=== PATIENT | female | born 1990 | race Caucasian/White ===

== ENCOUNTER 2019-03-07 12:45 | Emergency (ER) | payer MEDICAID ==
[~2019-03-07] VITALS: Ht 175.3 cm; Wt 72.6 kg
[~2019-03-07 12:45] MED LIST: NITR-65 PO; ONDA-42 SL; OXYTOCIN/NORMAL SALINE 0 ML IV ONE; PREN-98 PO
[2019-03-07] MEDS ORDERED: fentaNYL INJECTION 100 MCG/2 ML AMP ONE (13:01)
[2019-03-07] MEDS: OXYTOCIN/NORMAL SALINE 500 ML IV SCH ×2 (13:10→13:56)
[2019-03-07] MEDS ORDERED: IBUPROFEN 800 MG (MOTRIN) TAB PO ONE ×2 (13:17→13:45)
[2019-03-07] MEDS ORDERED: HYDROcodone/APAP 5 MG/325 MG (LORTAB) TAB ONE (13:17)
[2019-03-07] MEDS ORDERED: HYDROcodone/APAP 5 MG/325 MG (LORTAB) TAB PO ONE (13:45)
[2019-03-07] MEDS ORDERED: fentaNYL INJECTION 100 MCG/2 ML AMP IVP ONE (13:45)
--- NOTE | 2019-03-07 13:56 | ED Abdominal Pain ---
General Chief Complaint: Emergency Delivery-Mother Stated Complaint: L&D Source of Information: Patient, RN Notes Reviewed Exam Limitations: No Limitations History of Present Illness Date Seen by Provider: Mar 07, 2019 Time Seen by Provider: 13:10 Initial Comments Patient presents in active labor. Is @ 37 weeks and 3 days. Reportedly to deliver in [place]. Timing/Duration: Getting Worse Severity/Quality: Severe Location: Suprapubic Radiation: Back Activities at Onset: Rest Modifying Factors: Improves With Other (none) Associated Symptoms: Denies Symptoms Allergies and Home Medications Allergies Coded Allergies: No Known Drug Allergies (Unverified , 10/30/14) Home Medications Vit37/Iron/Folic Acid 1 Each Tab.chew, 1 EACH PO DAILY, (Reported) Patient Home Medication List Home Medication List Reviewed: Yes Review of Systems Review of Systems Constitutional: see HPI, other (patient in active labor) Gastrointestinal: See HPI, Abdominal Pain (actively vick) All Other Systems Reviewed Negative Unless Noted: Yes Past Bhgtzos-Xpottd-Eobmqg Hx Past Medical History Reproductive Disorders: No Sexually Transmitted Disease: No Physical Exam Vital Signs Capillary Refill : Height/Weight/BMI Height: 5'4.00" Weight: 164lbs. oz. 74.253903mk; BMI Method:Stated General Appearance: WD/WN, moderate distress Respiratory: no respiratory distress Gastrointestinal: other (obvious gravidia uterus) Rectal: deferred Genital/Rectal: other (Dr. Srinivasan reports the patient is dilated to 9 and 100 % effaced; 1+ station) Neurologic/Psychiatric: alert, oriented x 3 Skin: warm/dry Exam Comments Dr. Srinivasan present in the room shortly p/ the patient's arrival and assume OB care of the patient c/ my blessing. Progress/Results/Core Measures Results/Orders Lab Results Laboratory Tests Test 03/07/19 12:40 Range/Units White Blood Count 9.5 4.3-11.0 10^3/uL Red Blood Count 4.47 4.35-5.85 10^6/uL Hemoglobin 11.1 L 11.5-16.0 G/DL Hematocrit 35 35-52 % Mean Corpuscular Volume 78 L 80-99 FL Mean Corpuscular Hemoglobin 25 25-34 PG Mean Corpuscular Hemoglobin Concent 32 32-36 G/DL Red Cell Distribution Width 13.9 10.0-14.5 % Platelet Count 203 130-400 10^3/uL Mean Platelet Volume 10.7 H 7.4-10.4 FL Neutrophils (%) (Auto) 58 42-75 % Lymphocytes (%) (Auto) 32 12-44 % Monocytes (%) (Auto) 10 0-12 % Eosinophils (%) (Auto) 1 0-10 % Basophils (%) (Auto) 0 0-10 % Neutrophils # (Auto) 5.4 1.8-7.8 X 10^3 Lymphocytes # (Auto) 3.0 1.0-4.0 X 10^3 Monocytes # (Auto) 0.9 0.0-1.0 X 10^3 Eosinophils # (Auto) 0.1 0.0-0.3 10^3/uL Basophils # (Auto) 0.0 0.0-0.1 10^3/uL My Orders Orders - DUSTY VILLA DO Hydrocodone/Apap 5/325 Tablet (Lortab 5 (03/07/19 13:17) Ibuprofen Tablet (Motrin Tablet) (03/07/19 13:17) Cbc With Automated Diff (03/07/19 13:54) Comprehensive Metabolic Panel (03/07/19 13:54) Medications Given in ED Current Medications Medications Dose Ordered Sig/Stew Route Start Time Stop Time Status Last Admin Dose Admin Acetaminophen/ Hydrocodone Bitart 1 tab ONCE ONCE PO 03/07/19 13:45 03/07/19 13:46 DC 03/07/19 13:25 1 TAB Fentanyl Citrate 50 mcg ONCE ONCE IVP 03/07/19 13:45 03/07/19 13:46 DC 03/07/19 13:08 50 MCG Ibuprofen 800 mg ONCE ONCE PO 03/07/19 13:45 03/07/19 13:46 DC 03/07/19 13:23 800 MG Progress Progress Note : Progress Note Dr. Srinivasan delivered a baby boy c/ agars of 9. (+) meconium Departure Impression Primary Impression: [place] delivered in emergency department Disposition: 02 XFER SHT-TRM HOSP Condition: Stable Transfer Time Spoke to Accepting Phy: 13:30 Transfer Progress Notes Per Dr. Srinivasan. She spoke c/ Dr. Chelo Garza who has accepted the patient and baby in transfer. Transfer Facility: [facility] Method of Transfer: EMS Departure-Patient Inst. Referrals: NO,LOCAL PHYSICIAN (PCP/Family) Primary Care Physician DUSTY VILLA DO Mar 07, 2019 13:56
[2019-03-07 14:10] LABS: HEMATOCRIT 35 % (35-52); HEMOGLOBIN 11.1 G/DL (11.5-16.0); MEAN CORPUSCULAR HEMOGLOBIN 25 PG (25-34); MEAN CORPUSCULAR HGB CONC 32 G/DL (32-36); MEAN CORPUSCULAR VOLUME 78 FL (80-99); WHITE BLOOD COUNT 9.5 10^3/uL (4.3-11.0)
[2019-03-07 14:11] LABS: BASOPHILS % (AUTO) 0 % (0-10); EOSINOPHILS # (AUTO) 0.1 10^3/uL (0.0-0.3); EOSINOPHILS % (AUTO) 1 % (0-10); LYMPHOCYTES % (AUTO) 32 % (12-44); MEAN PLATELET VOLUME 10.7 FL (7.4-10.4); MONOCYTES # (AUTO) 0.9 X 10^3 (0.0-1.0); MONOCYTES % (AUTO) 10 % (0-12); NEUTROPHILS # (AUTO) 5.4 X 10^3 (1.8-7.8); NEUTROPHILS % (AUTO) 58 % (42-75); PLATELET COUNT 203 10^3/uL (130-400); RED CELL DISTRIBUTION WIDTH 13.9 % (10.0-14.5)
[2019-03-07 14:31] LABS: CARBON DIOXIDE 20 MMOL/L (21-32); CHLORIDE 100 MMOL/L (98-107); POTASSIUM 4.6 MMOL/L (3.6-5.0); SODIUM 134 MMOL/L (135-145)
[2019-03-07 14:32] LABS: ALANINE AMINOTRANSFERASE 13 U/L (0-55); ALBUMIN 3.1 GM/DL (3.2-4.5); ALKALINE PHOSPHATASE 240 U/L (40-136); BILIRUBIN,TOTAL 0.2 MG/DL (0.1-1.0); BUN/CREATININE RATIO 18; CALCIUM 9.1 MG/DL (8.5-10.1); CREATININE SERUM 0.67 MG/DL (0.60-1.30); GFR ESTIMATED > 60; GLUCOSE 62 MG/DL (70-105); TOTAL PROTEIN 6.9 GM/DL (6.4-8.2)
[2019-03-07 15:00] VITALS: BP 157/97
--- NOTE | 2019-03-07 17:03 | OB Labor & Delivery Record ---
Vag Delivery Note Vag Delivery Note Date of Delivery: 03/07/19 Preoperative Diagnosis: Leonie Lebron is a (28 /Para 4/ 3, Gestational Age 37 3/7 wga who presented with severe pain and contraction to ED. Postoperative Diagnosis: Same Surgeon: EMIL CHANDRA Non Licensed Operator: [none] Anesthesia: [none] Delivery Type: [] Findings: [] Viable [male] infant, apgars [9/9], weight [7 pounds 2 ounces] Lacerations: Intact placenta with 3 vessel cord. No nuchal cord, body cord or shoulder dystocia 2 bags of 20 u pitocin given post- Estimated Blood Loss: [450] ml Complications: None Condition: Stable Description of Procedure: The patient is a 28 year old female who presented [with contractions and abdominal pain]. . Her labor course was remarkable for [precipitous delivery in ED] She was found to be complete with bulging bag. AROM with my gloved finger and it showed meconium. She was then set up for delivery. The 's head was delivered atraumatically in the [OA] position. The shoulders and remainder of the infant' s body were then delivered without difficulty. Upon delivery, the head was held below the level of the perineum and the mouth and nares were bulb suctioned. The cord was doubly clamped and cut after 60 seconds and was placed on maternal abdomen. An intact placenta with 3-vessel cord delivered via Artur and there was found to be minimal bleeding.~ Vigorous fundal massage was performed and the fundus was found to be firm. IV oxytocin was given. Examination of the vagina and perineum revealed no lacerations. Following the repair, sponge, instrument and needle counts were correct. Mom and baby were both in stable condition in the labor suite. Vitals - Labs Labs Laboratory Tests 03/07/19 12:40: White Blood Count 9.5, Red Blood Count 4.47, Hemoglobin 11.1L, Hematocrit 35, Mean Corpuscular Volume 78L, Mean Corpuscular Hemoglobin 25, Mean Corpuscular Hemoglobin Concent 32, Red Cell Distribution Width 13.9, Platelet Count 203, Mean Platelet Volume 10.7H, Neutrophils (%) (Auto) 58, Lymphocytes (%) (Auto) 32 , Monocytes (%) (Auto) 10, Eosinophils (%) (Auto) 1, Basophils (%) (Auto) 0, Neutrophils # (Auto) 5.4, Lymphocytes # (Auto) 3.0, Monocytes # (Auto) 0.9, Eosinophils # (Auto) 0.1, Basophils # (Auto) 0.0, Sodium Level 134L, Potassium Level 4.6, Chloride Level 100, Carbon Dioxide Level 20L, Anion Gap 14, Blood Urea Nitrogen 12, Creatinine 0.67, Estimat Glomerular Filtration Rate > 60, BUN/ Creatinine Ratio 18, Glucose Level 62L, Calcium Level 9.1, Corrected Calcium 9.8 , Total Bilirubin 0.2, Aspartate Amino Transf (AST/SGOT) 21, Alanine Aminotransferase (ALT/SGPT) 13, Alkaline Phosphatase 240H, Total Protein 6.9, Albumin 3.1L EMIL CHANDRA MD Mar 07, 2019 17:03
== END 2019-03-07 15:00 | disposition short-term general hospital (02) ==
LOC: ER FS 12:50 → EDUNIT# 13:06 → ER FS 15:00
DX: O80 Encounter for full-term uncomplicated delivery (principal); Z37.0 Single live birth; Z3A.37 37 weeks gestation of pregnancy
CPT/HCPCS: 36415; 59409; 80053; 85025; 96374; 99291

== ENCOUNTER 2020-11-02 02:18 | Emergency (ER) | payer MEDICAID ==
[~2020-11-02] VITALS: Ht 162 cm; Wt 104.0 kg
[~2020-11-02 02:18] MED LIST changes: -OXYTOCIN/NORMAL SALINE 0 ML IV ONE
[2020-11-02 03:02] LABS: BILIRUBIN,URINE NEGATIVE (NEGATIVE); CLARITY,URINE CLEAR; COLOR,URINE YELLOW; GLUCOSE, URINE (UA) NEGATIVE (NEGATIVE); KETONES,URINE NEGATIVE (NEGATIVE); LEUKOCYTE ESTERASE ,URINE NEGATIVE (NEGATIVE); NITRITE,URINE NEGATIVE (NEGATIVE); PH,URINE 7.5 (5-9); PROTEIN,URINE NEGATIVE (NEGATIVE)
[2020-11-02 03:08] LABS: BACTERIA,URINE TRACE /HPF; SQUAMOUS EPITHELIAL CELL,UR >50 /HPF
--- NOTE | 2020-11-02 03:09 | ED Abdominal Pain ---
General Chief Complaint: Abdominal/GI Problems Stated Complaint: ABD PAIN,MIDDLE & LEFT SIDE Source of Information: Patient Exam Limitations: No Limitations History of Present Illness Date Seen by Provider: Nov 02, 2020 Time Seen by Provider: 02:45 Initial Comments Patient presents ER by private conveyance with chief complaint that she is been having pain in her epigastric region as well as her left lower quadrant since Thursday, 5 days ago. She went to urgent care on Thursday and they did ultrasound telling her her gallbladder was normal and some labs which they said were okay. Urgent care told her she needed to keep her follow-up appointment with her primary care doctor, Lisa Cowart but to return to the ER if her pain worsens. She says tonight it started around midnight and she use Pepcid but the pain is still unbearable, worse than childbirth. She had her tubes tied but no other abdominal surgeries. She has had some nausea and vomiting of stomach acid. She is not been able to eat much all week. She is had no fevers or chills. No dysuria. The patient states her car ride over was very uncomfortable every time they had a bump. Allergies and Home Medications Allergies Coded Allergies: No Known Drug Allergies (Unverified , 10/30/14) Home Medications Ondansetron 4 Mg Tab.rapdis, 4 MG PO Q6H PRN for NAUSEA/VOMITING Prescribed by: CHRISTIANA HENRY on 11/02/20 05 Pantoprazole Sodium 40 Mg Tablet.dr, 40 MG PO DAILY Prescribed by: CHRISTIANA HENRY on 11/02/20 0538 Vit37/Iron/Folic Acid 1 Each Tab.chew, 1 EACH PO DAILY, (Reported) Patient Home Medication List Home Medication List Reviewed: Yes Review of Systems Review of Systems Constitutional: No chills, No diaphoresis EENTM: No Blurred Vision, No Double Vision Respiratory: Denies Cough, Denies Shortness of Air Cardiovascular: Denies Chest Pain, Denies Lightheadedness Gastrointestinal: See HPI, Abdominal Pain; Denies Constipated, Denies Diarrhea; Nausea, Poor Fluid Intake, Vomiting Genitourinary: Denies Burning, Denies Discharge Musculoskeletal: No back pain, No joint pain Skin: No pruritus, No rash Psychiatric/Neurological: Denies Headache, Denies Numbness All Other Systems Reviewed Negative Unless Noted: Yes Past Dcqwbmf-Viyrao-Vdsnuo Hx Patient Social History Alcohol Use: Denies Use Recreational Drug Use: No Smoking Status: Never a Smoker Past Medical History Reproductive Disorders: No Sexually Transmitted Disease: No Physical Exam Vital Signs Vital Signs - First Documented 11/02/20 02:50 Temp 36.2 Pulse 80 Resp 18 B/P (MAP) 150/92 (111) Pulse Ox 98 Capillary Refill : Height/Weight/BMI Height: 5'9.00" Weight: 160lbs. oz. 72.414582lh; BMI Method:Estimated General Appearance: WD/WN, no apparent distress HEENT: PERRL/EOMI, pharynx normal Neck: full range of motion, supple, normal inspection Respiratory: lungs clear, normal breath sounds, no respiratory distress, no accessory muscle use Cardiovascular: normal peripheral pulses, regular rate, rhythm, no edema Gastrointestinal: normal bowel sounds, soft, no organomegaly, tenderness (Epigastric with positive Moreland sign and left lower quadrant tenderness with positive mesenteric signs and psoas sign.) Progress/Results/Core Measures Results/Orders Lab Results Laboratory Tests Test 11/02/20 02:45 11/02/20 03:10 Range/Units Urine Color YELLOW Urine Clarity CLEAR Urine pH 7.5 5-9 Urine Specific [place] 1.010 L 1.016-1.022 Urine Protein NEGATIVE NEGATIVE Urine Glucose (UA) NEGATIVE NEGATIVE Urine Ketones NEGATIVE NEGATIVE Urine Nitrite NEGATIVE NEGATIVE Urine Bilirubin NEGATIVE NEGATIVE Urine Urobilinogen 0.2 < = 1.0 MG/DL Urine Leukocyte Esterase NEGATIVE NEGATIVE Urine RBC (Auto) NEGATIVE NEGATIVE Urine RBC NONE /HPF Urine WBC NONE /HPF Urine Squamous Epithelial Cells >50 H /HPF Urine Crystals NONE /LPF Urine Bacteria TRACE /HPF Urine Casts NONE /LPF Urine Mucus NEGATIVE /LPF Urine Culture Indicated NO White Blood Count 10.7 4.3-11.0 10^3/uL Red Blood Count 4.41 3.80-5.11 10^6/uL Hemoglobin 13.2 11.5-16.0 g/dL Hematocrit 37 35-52 % Mean Corpuscular Volume 84 80-99 fL Mean Corpuscular Hemoglobin 30 25-34 pg Mean Corpuscular Hemoglobin Concent 36 32-36 g/dL Red Cell Distribution Width 11.9 10.0-14.5 % Platelet Count 408 H 130-400 10^3/uL Mean Platelet Volume 9.2 9.0-12.2 fL Immature Granulocyte % (Auto) 0 % Neutrophils (%) (Auto) 74 42-75 % Lymphocytes (%) (Auto) 16 12-44 % Monocytes (%) (Auto) 8 0-12 % Eosinophils (%) (Auto) 1 0-10 % Basophils (%) (Auto) 0 0-10 % Neutrophils # (Auto) 8.0 H 1.8-7.8 10^3/uL Lymphocytes # (Auto) 1.7 1.0-4.0 10^3/uL Monocytes # (Auto) 0.8 0.0-1.0 10^3/uL Eosinophils # (Auto) 0.1 0.0-0.3 10^3/uL Basophils # (Auto) 0.0 0.0-0.1 10^3/uL Immature Granulocyte # (Auto) 0.0 0.0-0.1 10^3/uL Sodium Level 136 135-145 MMOL/L Potassium Level 3.5 L 3.6-5.0 MMOL/L Chloride Level 105 98-107 MMOL/L Carbon Dioxide Level 19 L 21-32 MMOL/L Anion Gap 12 5-14 MMOL/L Blood Urea Nitrogen 11 7-18 MG/DL Creatinine 0.80 0.60-1.30 MG/DL Estimat Glomerular Filtration Rate > 60 BUN/Creatinine Ratio 14 Glucose Level 109 H 70-105 MG/DL Calcium Level 8.9 8.5-10.1 MG/DL Corrected Calcium 8.7 8.5-10.1 MG/DL Total Bilirubin 0.6 0.1-1.0 MG/DL Aspartate Amino Transf (AST/SGOT) 16 5-34 U/L Alanine Aminotransferase (ALT/SGPT) 17 0-55 U/L Alkaline Phosphatase 87 40-136 U/L C-Reactive Protein High Sensitivity 1.13 H 0.00-0.50 MG/DL Total Protein 7.9 6.4-8.2 GM/DL Albumin 4.2 3.2-4.5 GM/DL Lipase 15 8-78 U/L My Orders Orders - CHRISTIANA HENRY Ua Culture If Indicated (11/02/20 02:21) Urine Bedside (11/02/20 02:21) Cbc With Automated Diff (11/02/20 03:01) Comprehensive Metabolic Panel (11/02/20 03:01) Lipase (11/02/20 03:01) Hs C Reactive Protein (11/02/20 03:01) Pantoprazole Injection (Protonix Injecti (11/02/20 03:15) Ed Iv/Invasive Line Start (11/02/20 03:01) Lactated Ringers (Lr 1000 Ml Iv Solution (11/02/20 03:15) Ketorolac Injection (Toradol Injection) (11/02/20 03:15) Ondansetron Injection (Zofran Injectio (11/02/20 03:15) Ct Abdomen/Pelvis W (11/02/20 04:22) Medications Given in ED Current Medications Medications Dose Ordered Sig/Stew Route Start Time Stop Time Status Last Admin Dose Admin Ketorolac Tromethamine 30 mg ONCE ONCE IVP 11/02/20 03:15 11/02/20 03:16 DC 11/02/20 03:20 30 MG Lactated Ringer's 1,000 ml @ 0 mls/hr Q0M ONCE IV 11/02/20 03:15 11/02/20 03:16 DC 11/02/20 03:22 1,000 MLS/HR Ondansetron HCl 4 mg ONCE ONCE IVP 11/02/20 03:15 11/02/20 03:16 DC 11/02/20 03:19 4 MG Pantoprazole 40 mg ONCE ONCE IV 11/02/20 03:15 11/02/20 03:16 DC 11/02/20 03:21 40 MG Vital Signs/I&O 11/02/20 02:50 Temp 36.2 Pulse 80 Resp 18 B/P (MAP) 150/92 (111) Pulse Ox 98 Progress Progress Note #1: Time: 03:08 Progress Note Clinical exam of her abdomen is concerning but her vitals are aseptic. Appendicitis versus gallbladder versus much less likely GERD. Plan to give her some pantoprazole and NSAIDs. We will give her a liter of fluids and check some labs and urinalysis. Bedside was negative. Urinalysis unremarkable. If there is any concern on the labs we would plan to do a CT abdomen and pelvis likely appendix study. Lipase has been ordered. Progress Note #2: Time: 04:05 Progress Note The patient's nausea is gone. Her pain has significantly improved after NSAIDs. She is going to discuss with her her symptoms. We have offered to do a CT scan to rule out any significant pathology but her physical exam has also improved. She is mule tender and no longer has a Moreland sign positive exam. Progress Note #3: Time: 04:22 Progress Note Patient elected to do a CT scan abdomen pelvis after being given the option and discussing risks, benefits and alternatives. She was able to ambulate to the restroom. She is feeling better. Will rule out appendicitis or cholecystitis. Diagnostic Imaging Diagonstic Imaging: CT Plain Films/CT/US/NM/MRI: abdomen, pelvis Comments Normal appendix, gallbladder and bile ducts are unremarkable without stones or ductal dilatation. No evidence of acute abnormality. Mild right renal scarring at the lower pole. No hydronephrosis. No evidence of acute pyelonephritis. Reviewed: Reviewed [place] Study, Reviewed by Me Departure Impression Primary Impression: Biliary colic Disposition: HOME, SELF-CARE Condition: Improved Departure-Patient Inst. Decision time for Depature: 05:35 Referrals: STEFANY ULLOA PAMELA R APRN (PCP) Primary Care Physician Patient Instructions: POSS GALLSTONE-W/BILIARY COLIC Add. Discharge Instructions: I suspect your symptoms may be caused by your gallbladder. You need to follow- up with your primary care provider at your next scheduled appointment to further work this up. Pantoprazole 40 mg daily. Ondansetron 1 tablet under the tongue every 6 hours as necessary for nausea and/or vomiting. Return to the nearest ER if you develop fever, intractable nausea or pain. Eat smaller meals and avoid greasy red meats, dairy or other similar foods. Fish, chicken, high-fiber vegetables are recommended. Dr. Ulloa, general surgery can also help you work this up. Other possibilities exist beyond your gallbladder. If you would like to follow-up with him in the clinic then call on Thursday and request to follow-up. All discharge instructions reviewed with patient and/or family. Voiced understanding. Scripts Ondansetron (Ondansetron Odt) 4 Mg Tab.rapdis 4 MG PO Q6H PRN for NAUSEA/VOMITING, #10 TAB 0 Refills Prov: CHRISTIANA HENRY 11/02/20 Pantoprazole Sodium (Pantoprazole Sodium) 40 Mg Tablet.dr 40 MG PO DAILY for 30 Days, #30 TAB 0 Refills Prov: CHRISTIANA HENRY 11/02/20 Work/School Note: Work Release Form Date Seen in the Emergency Department: Nov 02, 2020 Return to Work: Nov 03, 2020 Restrictions: No Restrictions Copy Copies To 1: STEFANY ULLOA TITUS J Nov 02, 2020 03:09
[2020-11-02] MEDS ORDERED: KETOROLAC 30 MG/ML VIAL IVP ONE (03:15)
[2020-11-02] MEDS ORDERED: ONDANSETRON 4 MG/2 ML (SDV) Z0FRAN IVP ONE (03:15)
[2020-11-02] MEDS ORDERED: LACTATED RINGERS 1,000 ML IV ONE (03:15)
[2020-11-02] MEDS ORDERED: PANTOPRAZOLE 40 MG (PROTONIX) VIAL IV ONE (03:15)
[2020-11-02 03:20] LABS: BASOPHILS % (AUTO) 0 % (0-10); EOSINOPHILS # (AUTO) 0.1 10^3/uL (0.0-0.3); EOSINOPHILS % (AUTO) 1 % (0-10); HEMATOCRIT 37 % (35-52); HEMOGLOBIN 13.2 g/dL (11.5-16.0); LYMPHOCYTES # (AUTO) 1.7 10^3/uL (1.0-4.0); LYMPHOCYTES % (AUTO) 16 % (12-44); MEAN CORPUSCULAR HEMOGLOBIN 30 pg (25-34); MEAN CORPUSCULAR HGB CONC 36 g/dL (32-36); MEAN CORPUSCULAR VOLUME 84 fL (80-99); MEAN PLATELET VOLUME 9.2 fL (9.0-12.2); MONOCYTES # (AUTO) 0.8 10^3/uL (0.0-1.0); MONOCYTES % (AUTO) 8 % (0-12); NEUTROPHILS % (AUTO) 74 % (42-75); PLATELET COUNT 408 10^3/uL (130-400); WHITE BLOOD COUNT 10.7 10^3/uL (4.3-11.0)
[2020-11-02 03:31] LABS: ALBUMIN 4.2 GM/DL (3.2-4.5); CHLORIDE 105 MMOL/L (98-107); POTASSIUM 3.5 MMOL/L (3.6-5.0); SODIUM 136 MMOL/L (135-145)
[2020-11-02 03:32] LABS: CALCIUM 8.9 MG/DL (8.5-10.1)
[2020-11-02 03:33] LABS: GLUCOSE 109 MG/DL (70-105); TOTAL PROTEIN 7.9 GM/DL (6.4-8.2)
[2020-11-02 03:34] LABS: CARBON DIOXIDE 19 MMOL/L (21-32)
[2020-11-02 03:35] LABS: BILIRUBIN,TOTAL 0.6 MG/DL (0.1-1.0)
[2020-11-02 03:37] LABS: ALKALINE PHOSPHATASE 87 U/L (40-136); GFR ESTIMATED > 60
[2020-11-02 03:38] LABS: BUN/CREATININE RATIO 14
[2020-11-02 03:40] LABS: ALANINE AMINOTRANSFERASE 17 U/L (0-55); LIPASE 15 U/L (8-78)
[2020-11-02] MEDS ORDERED: ONDA4TAB11 PO ×2 (05:38→05:56)
[2020-11-02] MEDS ORDERED: PANT40TA52 PO ×2 (05:38→05:56)
[2020-11-02 05:56] VITALS: BP 143/93
--- NOTE | 2020-11-02 07:19 | Diagnostic Imaging Report ---
PROCEDURE: CT abdomen and pelvis with contrast. TECHNIQUE: Multiple contiguous axial images were obtained through the abdomen and pelvis after administration of intravenous contrast. Auto Exposure Controls were utilized during the CT exam to meet ALARA standards for radiation dose reduction. All CT scans use one or more of the following dose optimizing techniques: automated exposure control, MA and/or KvP adjustment based on patient size and exam type or iterative reconstruction. INDICATION: Right upper quadrant pain, positive Moreland's sign EXAMINATION: CT of the abdomen and pelvis with contrast from 11/02/2020 COMPARISONS: None FINDINGS: There is mild fatty infiltration throughout the liver which is otherwise normal in appearance. The gallbladder, spleen, pancreas and adrenal glands normal. Kidneys demonstrate no acute abnormalities. There is no ascites or free air. There are findings of mild constipation. The appendix is normal. There is a cystic area within the left adnexa likely an ovarian cyst approximately a centimeter and half in size. There is no acute osseous abnormality. Lung bases unremarkable. IMPRESSION: 1. No acute abnormality in the abdomen nor pelvis. Incidental findings as above including a cystic lesion in left adnexa likely an ovarian cyst. Pertinent findings agree with the preliminary report. Dictated by: Dictated on workstation # [id number]
== END 2020-11-02 05:56 | disposition home or self-care (01) ==
LOC: EDUNIT# 02:18 → ER 02:22
DX: K80.50 Calculus of bile duct without cholangitis or cholecystitis without obstruction (principal)
CPT/HCPCS: 36415; 74177; 80053; 81000; 83690; 84703; 85025; 86141

== ENCOUNTER 2020-11-19 05:49 | Outpatient (RCR) | payer MEDICAID ==
[~2020-11-19] VITALS: Ht 162.6 cm; Wt 104.0 kg
[~2020-11-19 05:49] MED LIST changes: +ONDA4TAB11 PO; +PANT40TA52 PO
== END 2020-11-19 13:58 | disposition home or self-care (01) ==
LOC: PREOP 05:49
PROVIDERS: ATTEND Surgery
DX: Z01.818 Encounter for other preprocedural examination (principal); K21.9 Gastro-esophageal reflux disease without esophagitis

== ENCOUNTER → 2020-11-22 | Outpatient (CLI) | payer MEDICAID | LOC: LAB FS 13:32 | PROVIDERS: ATTEND Surgery | DX: Z01.818 Encounter for other preprocedural examination (principal); K21.9 Gastro-esophageal reflux disease without esophagitis; Z20.822 Contact with and (suspected) exposure to COVID-19 | CPT/HCPCS: 87635 ==

== ENCOUNTER 2020-11-26 08:06 | Day surgery (SDC) | payer MEDICAID ==
[~2020-11-26] VITALS: Ht 162.6 cm; Wt 104.0 kg
[2020-11-26] MEDS ORDERED: LACTATED RINGERS 1,000 ML IV ONE (08:10)
--- NOTE | 2020-11-26 08:24 | Progress Note-Pre Operative ---
Pre-Operative Progress Note H&P Reviewed The H&P was reviewed, patient examined and no changes noted. Time Seen by Provider: 08:19 Date H&P Reviewed: Nov 26, 2020 Time H&P Reviewed: 08:19 Pre-Operative Diagnosis: RUQ pain, Epigastric pain STEFANY ULLOA DO Nov 26, 2020 08:23
[2020-11-26] MEDS ORDERED: LACTATED RINGERS 1,000 ML IV STA (08:25)
[2020-11-26] MEDS ORDERED: HURRICAINE EXT TUBE (BENZOCAINE) XX PRN (08:30)
[2020-11-26 08:32] VITALS: BP 133/71
[2020-11-26] MEDS ORDERED: MIDAZOLAM 2 MG/2 ML (VERSED) VIAL ONE (09:28)
[2020-11-26] MEDS ORDERED: PROPOFOL INJECTION 50 ML IV ONE (09:28)
[2020-11-26] MEDS ORDERED: HURRICAINE EXT TUBE (BENZOCAINE) ONE (09:30)
[2020-11-26 09:40] VITALS: BP 123/68
[2020-11-26 09:45] VITALS: BP 108/59
[2020-11-26 09:50] VITALS: BP_SYST 111; BP_SYST 127; BP_DIAS 64; BP_DIAS 85
[2020-11-26 10:15] VITALS: BP 123/82
[2020-11-26 10:18] VITALS: BP 123/82
--- NOTE | 2020-11-26 10:21 | Progress Note-Post Operative ---
Post-Operative Progess Note Surgeon (s)/Tree Shear Operator (s) Surgeon STEFANY ULLOA DO Tree Shear Operator: none Pre-Operative Diagnosis RUQ pain, Epigastric pain Post-Operative Diagnosis Same plus gastritis Procedure & Operative Findings Date of Procedure 11/26/20 Procedure Performed/Findings EGD with bx Anesthesia Type IV sedation by PRISONER CLASSIFICATION INTERVIEWER Estimated Blood Loss Estimated blood loss (mL): scant Specimens/Packing Specimens Removed antral bx body of stomach bx GE jxn bx STEFANY ULLOA DO Nov 26, 2020 10:21
--- NOTE | 2020-11-26 10:22 | Endoscopy Discharge Instruct ---
Endo Procedure/Findings Findings 1.: Gastritis Discharge Instructions - Activity: You might feel a little sleepy until tomorrow. This is due to the medicine you received to relax you. Until tomorrow, you should: NOT drive a car, operate machinery or power tools. NOT drink any alcoholic beverages. NOT make any important decisions or sign importortant papers. Do not return to work until tomorrow, unless otherwise instructed. Resume previous activities tomorrow. Diet: Start by taking liquids. If you tolerate liquids, advance to solid food. 1.: EGD in 3 years Notify Physician - If you experience excessive bleeding, unusual abdominal pain, fever, or chest pain, contact your doctor immediately. STEFANY ULLOA DO Nov 26, 2020 10:21
--- NOTE | 2020-11-26 11:57 | Anesthesia-General Post-Op ---
MAC Patient Condition Mental Status/LOC: Same as Preop Cardiovascular: Satisfactory Nausea/Vomiting: Absent Respiratory: Satisfactory Pain: Controlled Complications: Absent Post Op Complications Complications None Follow Up Care/Instructions Patient Instructions None needed. Anesthesiology Discharge Order Discharge Order Patient is doing well, no complaints, stable vital signs, no apparent adverse anesthesia problems. No complications reported per nursing. FE ALVARADO CRNA Nov 26, 2020 11:57
--- NOTE | 2020-11-26 23:58 | OPERATIVE REPORT ---
DATE OF SERVICE: PREOPERATIVE DIAGNOSIS: Right upper quadrant pain and epigastric pain. POSTOPERATIVE DIAGNOSIS: Gastritis. PROCEDURE: EGD with biopsy. SURGEON: Brent Sanchez DO SOUNDING DEVICE OPERATOR: None. ANESTHESIA: IV sedation by the YARN SPOOLER. SPECIMEN: Biopsy from body of stomach, biopsy from the antrum as well as biopsy from the GE junction. BLOOD LOSS: Scant. FLUIDS: Per anesthesia. POSTOPERATIVE CONDITION: Stable. INDICATION FOR PROCEDURE: The patient is a 29-year-old female who has been having some right upper quadrant pain, epigastric pain, wanted to rule everything out and needed to do an EGD for this. FINDINGS: The patient had some mild gastritis, possibly changes of the GE junction. Biopsies performed. PROCEDURE NOTE: After informed consent was obtained, the patient was brought to the endoscopy suite, placed in bed in left lateral decubitus position. She was administered IV sedation by the YARN SPOOLER who then monitored her vitals the entire time, heart rate, blood pressure and pulse ox. I started, placed the scope down the mouth through the esophagus into the stomach, pushed past the pylorus into the duodenum. Duodenum looked good, took a picture. Pulled back, noted some mild gastritis in the antrum, did a biopsy. I retroflexed the scope, did not see hiatal hernia, looked like some more gastritis, did a biopsy in the body of the stomach and then pulled the scope into the GE junction, did a biopsy, pushed the scope back into the stomach, suctioned all the air out of stomach and then pulled the scope up the esophagus and out the mouth. The patient tolerated the procedure, recovered in endoscopy suite. Job ID: [id number] DocumentID: [id number] Dictated Date: 11/26/2020 20:03:34 Apparel Sales Associate Date: 11/26/2020 23:57:33 Dictated By: BRENT SANCHEZ DO
== END 2020-11-26 10:25 | disposition home or self-care (01) ==
LOC: ENDO 08:06
PROVIDERS: ATTEND Surgery
DX: K29.50 Unspecified chronic gastritis without bleeding (principal); K59.09 Other constipation; E66.9 Obesity, unspecified; Z68.39 Body mass index [BMI] 39.0-39.9, adult; Z79.899 Other long term (current) drug therapy; Z80.3 Family history of malignant neoplasm of breast; Z80.1 Family history of malignant neoplasm of trachea, bronchus and lung
CPT/HCPCS: 84703; 88305

== ENCOUNTER → 2020-11-30 | Outpatient (CLI) | payer MEDICAID ==
[~2020-11-30] MED LIST changes: +CATHETER FLUSH 10 ML SYR IV PRN
--- NOTE | 2020-11-30 14:18 | Diagnostic Imaging Report ---
Indication: Right upper quadrant pain. Patient was administered 5.3 mCi technetium 99m Choletec intravenously and imaging over the abdomen was performed. After 45 minutes patient ingested insure and a gallbladder ejection fraction was calculated. Homogeneous uptake of activity by the liver is noted. There is excretion of activity into the gallbladder and common duct. There is passage of activity into the small bowel. Minimal reflux into the stomach is noted. Gallbladder ejection fraction is 63%. IMPRESSION: 1. Patent cystic duct and common bile duct. 2. Mild gastric bile reflux. 3. Normal gallbladder ejection fraction of 63%. Dictated by: Dictated on workstation # [id number]
== END ==
LOC: CARD 11:27
PROVIDERS: ATTEND Surgery
DX: K21.9 Gastro-esophageal reflux disease without esophagitis (principal)
CPT/HCPCS: 78227; A9537